=== PATIENT | male | born 2000 | race Caucasian/White ===

== ENCOUNTER 2020-11-01 00:58 | Emergency (ER) | payer OTHER, SELFPAY ==
[2020-11-01] VITALS (7 sets, daily range): BP systolic 109–138; BP diastolic 63–90; PULSE 73–111; RESP 14–25; TEMP 36.8; O2SAT 98–100; BMI 18.6
--- NOTE | 2020-11-01 01:02 | XR_ITS ---
PROCEDURE INFORMATION: Exam: XR Chest Exam date and time: 11/01/2020 1:02 AM Age: 20 years old Clinical indication: Pain; Chest pressure; Additional info: Chest pain TECHNIQUE: Imaging protocol: XR of the chest. Views: 2 views. COMPARISON: No relevant prior studies available. FINDINGS: Lungs: No airspace consolidation. No pulmonary edema. Pleural spaces: There is a questionable trace right pneumothorax measuring 3 mm at the apex. No pleural effusion. Heart/Mediastinum: Normal heart size. Pneumomediastinum is present. Bones/joints: Mild levoconvex curvature of the lower thoracic spine. Soft tissues: There is subcutaneous gas in the lower neck and bilateral axillary regions (right greater than left). IMPRESSION: 1. Pneumomediastinum. Subcutaneous gas in the lower neck and axillary regions, right greater than left. 2. Possible trace right pneumothorax. 3. Consider CT for further assessment of the above.
--- NOTE | 2020-11-01 01:02 | ECG_ITS ---
APPROVED REPORT Exam: Resting ECG HR:110 bpm ECG Measurements Heart Rate 110 AXES TX 138 P 75 QRSd 94 QRS 100 QT 328 T 52 QTc 443 Conclusion Sinus tachycardia Possible Left atrial enlargement Rightward axis Incomplete right bundle branch block Borderline ECG Electronically signed by : Antoine Lovell MD 11/02/2020 18:09:24
[2020-11-01 01:12] LABS: Coronavirus 19, PCR Not Detected (NotDetected); Influenza A, PCR Not Detected (NotDetected); Influenza B, PCR Not Detected (NotDetected)
[2020-11-01 01:14] LABS: Basophils # 0.1 K/mm3 (0-0.2); Basophils % 0.4 % (0.1-2.0); Eosinophils # 0.2 K/mm3 (0.0-0.4); Eosinophils % 1.6 % (0.1-12.0); Hemoglobin 15.7 g/dL (14.1-18.0); Lymphocytes # 1.9 K/mm3 (0.7-4.5); Lymphocytes % 16.5 % (10-50); Mean Corpuscular HGB Conc 33.5 g/dL (31.8-35.4); Mean Corpuscular Hemoglobin 30.1 pg (27.0-31.2); Mean Platelet Volume 7.2 fl (7.4-10.4); Monocytes # 0.7 K/mm3 (0.1-1.0); Monocytes % 6.4 % (1.7-9.3); Neutrophils # 8.6 K/mm3 (1.8-7.8); Neutrophils % 75.1 % (37.0-80.0); Platelet Count 268 K/mm3 (142-424); Red Blood Count 5.22 M/mm3 (4.60-6.20); Red Cell Distribution Width 12.1 % (11.5-17.5); White Blood Count 11.5 K/mm3 (4.5-13.0)
[2020-11-01 01:24] LABS: Anion Gap 16.1 mEq/L (5-15); Blood Urea Nitrogen 17 mg/dl (9-20); Carbon Dioxide 29 mmol/L (22.0-30.0); Chloride 101 mmol/L (98-107); Creatinine Clearance Estimated 98 mL/min (50-200); Potassium 4.1 mmoL/L (3.5-5.1); Sodium 142 mmol/L (136-145)
[2020-11-01 01:25] LABS: Alanine Aminotransferase 16 U/L (12-78); Albumin Level 4.8 g/dl (3.5-5.0); Alkaline Phosphatase 74 U/L (38-126); Aspartate Amino Transferase 30 U/L (17-59); Bilirubin,Indirect 0.9 mg/dL (0.0-0.9); Bilirubin,Total 0.9 mg/dl (0.2-1.3); Bilirubin,Unconjugated 0.8 mg/dL (0.0-1.1); Calcium 9.7 mg/dl (8.4-10.2); Estimated Glomerular Filt Rate 95 ml/min (>60); GFR (African American) 115 ML/MIN (>60); Glucose 109 mg/dl (74-100); Total Protein,Serum 7.8 g/dl (6.3-8.2)
[2020-11-01 01:30] LABS: C-Reactive Protein 0.5 mg/L (0-4)
[2020-11-01 01:37] LABS: Erythrocyte Sedimentation Rate 2 mm/hr (0-15)
[2020-11-01 01:41] LABS: Troponin I < 0.01 ng/ml (0.00-0.034)
[2020-11-01 02:08] LABS: Procalcitonin 0.035 ng/mL (0.0-2.0)
--- NOTE | 2020-11-01 03:27 | CT_ITS ---
PROCEDURE INFORMATION: Exam: CTA Chest With Contrast Exam date and time: 11/01/2020 3:27 AM Age: 20 years old Clinical indication: Sternal or substernal pain; Additional info: Rule out pe chest pain TECHNIQUE: Imaging protocol: Computed tomographic angiography of the chest with contrast. 3D rendering (Not supervised by radiologist): MIP and/or 3D reconstructed images were created by the technologist. Radiation optimization: All CT scans at this facility use at least one of these dose optimization techniques: automated exposure control; mA and/or kV adjustment per patient size (includes targeted exams where dose is matched to clinical indication); or iterative reconstruction. Contrast material: ISOVUE 370; Contrast volume: 70 ml; Contrast route: INTRAVENOUS (IV); COMPARISON: CR XR CHEST 2V 11/01/2020 1:03 AM FINDINGS: Pulmonary arteries: The pulmonary trunk, main, and branch pulmonary arteries contain no filling defects. Aorta: Unremarkable. No aortic aneurysm. No aortic dissection. Lungs: Unremarkable. No consolidation. No masses. Pleural spaces: No pneumothorax. No pleural effusion. Heart: No cardiomegaly. No pericardial effusion. Heart RV/LV ratio: Within normal limits. Coronary arteries: There is no evidence of significant coronary artery calcifications. Mediastinal space: There is extensive pneumomediastinum. Air also dissects into soft tissues of each axilla, within soft tissues of the neck, between the chest wall and each parietal pleural space, and into the retrocrural space. Lymph nodes: Unremarkable. No enlarged lymph nodes. Bones/joints: Unremarkable. No acute fracture. Soft tissues: There is minimal air within the esophagus however the esophagus appears intact. IMPRESSION: Extensive pneumomediastinum, as described. Primary diagnostic consideration would be pneumomediastinum secondary to tracheobronchial injury. By CT examination the esophagus appears intact. The possibility of infection such as mediastinitis cannot be excluded.
--- NOTE | 2020-11-01 03:42 | [facility].EDCP ---
ED Disposition Clinical Impression: Pneumomediastinum Disposition: Home, Self-Care Condition on Discharge: Good Instructions: DI for Atypical Chest Pain Additional Instructions: see pcp for f/u cxr and recheck if needed Referrals: Antoine Lovell MD [Primary Care Provider] - - Critical Care Critical Care Time: No Attestation: On 11/01/20, the high probability of a clinically significant, sudden or life threatening deterioration of the following system(s) required my full and direct attention, intervention and personal management. The time I documented below is in addition to time spent performing reported procedures but includes the following listed in this critical care notation. Medical Decision Making - Medical Records Medical records reviewed: Yes: I reviewed the patient's medical records. - Damien Inquiry Pt receiving controlled substance: No Vital Signs: 11/01/20 01:08 11/01/20 01:31 11/01/20 02:00 Temperature 98.2 F Temperature Source Oral Pulse Rate 84 83 Pulse Rate [Right Brachial] 111 H Respiratory Rate 25 H 15 14 Blood Pressure 125/68 112/67 Blood Pressure [Right Arm] 138/90 Blood Pressure Mean [Right Arm] 106 Blood Pressure Source [Right Arm] Automatic Cuff Blood Pressure Position [Right Arm] Sitting 02 Sat by Pulse Oximetry 100 100 99 Oxygen Delivery Method Room Air 11/01/20 02:30 11/01/20 03:00 11/01/20 03:29 Temperature Temperature Source Pulse Rate 88 83 94 H Pulse Rate [Right Brachial] Respiratory Rate 16 15 14 Blood Pressure 115/63 112/67 113/68 Blood Pressure [Right Arm] Blood Pressure Mean [Right Arm] Blood Pressure Source [Right Arm] Blood Pressure Position [Right Arm] 02 Sat by Pulse Oximetry 100 100 99 Oxygen Delivery Method - Lab Data Lab results reviewed: Yes: I reviewed the patient's lab results. Lab Results 11/01/20 00:59: SARS-CoV-2 (PCR) Not detected, Influenza A Untype (PCR) Not detected, Influenza Type B (PCR) Not detected 11/01/20 01:03: WBC 11.5, RBC 5.22, Hgb 15.7, Hct 47.0, MCV 90.0, MCH 30.1, MCHC 33.5, RDW 12.1, Plt Count 268, MPV 7.2 L, Neut % (Auto) 75.1, Lymph % (Auto) 16.5, Mcduffie % (Auto) 6.4, Eos % (Auto) 1.6, Baso % (Auto) 0.4, Neut # (Auto) 8.6 H, Lymph # (Auto) 1.9, Mcduffie # (Auto) 0.7, Eos # (Auto) 0.2, Baso # (Auto) 0.1, ESR 2 11/01/20 01:03: Sodium 142, Potassium 4.1, Chloride 101, Carbon Dioxide 29, Anion Gap 16.1 H, BUN 17, Creatinine 1.00, Estimated Creat Clear 98, Estimated GFR 95, Est GFR ( Amer) 115, Glucose 109 H, Calcium 9.7, Total Bilirubin 0.9, Direct Bilirubin 0.0, Conjugated Bilirubin 0.0, Indirect Bilirubin 0.9, Unconjugated Bilirubin 0.8, AST 30, ALT 16, Alkaline Phosphatase 74, Troponin I < 0.01, C-Reactive Protein 0.5, Total Protein 7.8, Albumin 4.8, Procalcitonin 0.035 Result diagrams: 11/01/20 01:03 11/01/20 01:03 Orders (Tests/Meds): ED MEDICATIONS Generic Name Dose Route Start Last Admin Trade Name Freq PRN Reason Stop Dose Admin Sodium Chloride 1,000 mls @ 999 mls/hr 11/01/20 01:15 11/01/20 01:06 Sod Chlor 0.9% 1000ml Bag IV 11/01/20 02:15 999 mls/hr .Q1H1M CHAPARRO Administration Discontinued Medications Generic Name Dose Route Start Last Admin Trade Name Freq PRN Reason Stop Dose Admin Iopamidol 70 ml 11/01/20 03:57 11/01/20 03:59 Iopamidol-370 (76%);100ml Bottle IV 11/01/20 03:58 70 ml ONCE ONE Administration Ketorolac Tromethamine 30 mg 11/01/20 01:02 11/01/20 01:05 Ketorolac 30mg/Ml Vial IV 11/01/20 01:03 30 mg ONCE ONE Administration Methylprednisolone Sodium Succinate 125 mg 11/01/20 01:02 11/01/20 01:06 Methylprednisolone Sod Succ 125mg Vial IV 11/01/20 01:03 125 mg ONCE ONE Administration Sodium Chloride 40 ml 11/01/20 03:57 11/01/20 03:59 0.9 % Sodium Chloride 50 Ml Vial IV 11/01/20 03:58 40 ml ONCE ONE Administration Sodium Chloride 10 ml 11/01/20 03:57 11/01/20 03:59 Sodium Chloride 0.9% 10
--- NOTE | 2020-11-01 03:43 | PC.NURSE ---
Pt going to CT
== END 2020-11-01 05:05 | disposition home or self-care (01) ==
PROVIDERS: Emergency Provider Emergency Medicine; PCP Internal Medicine Adolescent Medicine
DX: J98.2 Interstitial emphysema (principal); Z20.822 Contact with and (suspected) exposure to COVID-19
CPT/HCPCS: 71046; 71275; 80048; 80076; 84145; 84484; 85025; 85651; 86140; 93005; 96374; 96375; 99283; C9803; Q9967; U0003; U0005

== ENCOUNTER → 2020-11-02 11:27 | Outpatient (CLI) | payer OTHER, SELFPAY ==
--- NOTE | 2020-11-02 11:33 | XR_ITS ---
PROCEDURE: XR CHEST 2V CLINICAL HISTORY: PNEUMOMEDIASTINUM COMPARISON: CR XR CHEST 2V from 11/01/[address] ANGIO CHEST PE PROTOCOL from 11/01/2020 FINDINGS: There is extensive pneumomediastinum with subcutaneous emphysema in the neck, axilla, and supraclavicular regions similar to the previous exam. On the lateral view there is a pleural stripe noted in the substernal region suggesting a small pneumothorax versus overlying mediastinal air. There is mild lower thoracic curvature convex left. No acute bony abnormalities. IMPRESSION: Persistent pneumomediastinum and subcutaneous emphysema. Along the anterior chest in the substernal region there is a pleural stripe which may be related to small pneumothorax or the overlying pneumomediastinum. This is not readily apparent on the previous study but could be related to slight difference in rotation Dictated by: Ben Sinha MD 11/02/2020 13:00 Ben Sinha MD in [facility] 11/02/2020 13:00
== END ==
PROVIDERS: PCP Internal Medicine Adolescent Medicine; Visit Provider Internal Medicine Adolescent Medicine
DX: J98.2 Interstitial emphysema (principal)
CPT/HCPCS: 71046

== ENCOUNTER → 2020-11-09 12:22 | Outpatient (CLI) | payer OTHER, SELFPAY ==
--- NOTE | 2020-11-09 12:28 | XR_ITS ---
PROCEDURE: XR CHEST 2V CLINICAL HISTORY: sob COMPARISON: CT CT ANGIO CHEST PE PROTOCOL from 11/01/2020 CR XR CHEST 2V from 11/01/2020 CR XR CHEST 2V from 11/02/2020 FINDINGS: The cardiomediastinal silhouette and pulmonary vascularity are within normal limits. Mild lower thoracic scoliosis convex left. There is a longitudinal thin radiodensity along the left lateral chest wall. There does appear to be lung markings peripheral to this region indicating that this may represent a garment artifact. A similar density is noted along the anterior clear space previously noted subcutaneous emphysema and pneumomediastinum has resolved. No acute bony abnormalities. IMPRESSION: Resolved pneumomediastinum and subcutaneous emphysema. Probable sheet or garment artifact laterally and anteriorly. Dictated by: Ben Sinha MD 11/09/2020 15:54 Ben Sinha MD in [facility] 11/09/2020 15:54
== END ==
PROVIDERS: PCP Internal Medicine Adolescent Medicine; Visit Provider Internal Medicine Pulmonary Disease
DX: J98.2 Interstitial emphysema (principal)
CPT/HCPCS: 71046

== ENCOUNTER → 2020-11-16 14:52 | Outpatient (CLI) | payer OTHER, SELFPAY ==
--- NOTE | 2020-11-16 14:52 | CT_ITS ---
PROCEDURE: CT CHEST WO CON CLINICAL INDICATION: Pneumomediastinum Follow up COMPARISON: CT CT ANGIO CHEST PE PROTOCOL from 11/01/2020 TECHNIQUE: Axial images obtained with sagittal and coronal reformats. All CT scans at the facility use one or more dose reduction, viz: automated exposure control, ma/kV adjustment per patient size (including targeted exams where dose is matched to indication, i.e. head), or iterative reconstruction technique. FINDINGS: HEART AND MEDIASTINAL STRUCTURES: There has been resolution of the extensive pneumomediastinum and subcutaneous emphysema. No mediastinal or hilar mass or adenopathy. LUNGS AND PLEURAL SPACES: No evidence of pneumothorax. Incidental fissural nodule noted on the right inferiorly along the major fissure and may be due to small lymph node at 7 x 2 mm. No areas of consolidation BONY STRUCTURES: No acute bony abnormalities apparent. UPPER ABDOMEN: Unremarkable. ADDITIONAL FINDINGS: No other significant abnormalities. IMPRESSION: Interval resolution of the extensive pneumomediastinum and subcutaneous emphysema Dictated by: Ben Sinha MD 11/17/2020 08:51 Ben Sinha MD in [facility] 11/17/2020 08:51
== END ==
PROVIDERS: PCP Internal Medicine Adolescent Medicine; Visit Provider Internal Medicine Pulmonary Disease
DX: J98.2 Interstitial emphysema (principal)
CPT/HCPCS: 71250

== ENCOUNTER → 2021-12-07 15:12 | Outpatient (CLI) | payer OTHER, SELFPAY ==
--- NOTE | 2021-12-07 15:16 | XR_ITS ---
FINAL REPORT CLINICAL HISTORY: pneumothorax COMPARISON: 11/09/2020 FINDINGS: Two views of the chest were obtained. The heart size and pulmonary vascularity are within normal limits. The mediastinum is normal. No acute pulmonary abnormality is identified. There is no pneumothorax. The bony thorax is intact. There is mild left for curvature in the lower thoracic spine IMPRESSION: No active cardiopulmonary disease. Reviewed, Interpreted and Dictated by Wily Jefferson III, MD Transcribed by Rosa Dutton Authenticated and [facility]
== END ==
PROVIDERS: PCP Internal Medicine Adolescent Medicine; Visit Provider Internal Medicine Pulmonary Disease
DX: R06.02 Shortness of breath (principal)
CPT/HCPCS: 71046